=== PATIENT | female | born 1975 | race Two or more races ===

== ENCOUNTER 2018-03-19 17:50 | Emergency (ER) | payer MEDICAID ==
[~2018-03-19] VITALS: Ht 152.4 cm; Wt 61.2 kg
[2018-03-19 17:56] VITALS: BP 141/71
[2018-03-19] MEDS ORDERED: ACETAMINOPHEN/CODEINE#3 (300/30mg) TAB PO ONE (19:45)
[2018-03-19] MEDS ORDERED: TRIAMCINOLONE 40MG/ML 1ML VIAL IM ONE (19:45)
[2018-03-19] MEDS ORDERED: LIDOCAINE W/ EPINEPHRINE 2% INJ 20ML VIAL IJ ONE (19:45)
== END 2018-03-19 20:47 | disposition home or self-care (01) ==
LOC: ER 17:55
DX: G24.3 Spasmodic torticollis (principal)
CPT/HCPCS: 72040; 81025; 96372; 99283; J3301

== ENCOUNTER → 2022-02-11 | Outpatient (CLI) | payer MEDICAID ==
[2022-02-08 14:32] LABS: Basophils # (auto) 0.1 10 ^3/uL (0-0.2); Basophils % (auto) 0.9 % (0.0-2.0); Eosinophils # (auto) 0.1 10 ^3/uL (0-0.8); Hemoglobin 14.7 g/dL (12.2-16.2); Monocytes # (auto) 0.6 10 ^3/uL (0-1.3); Neutrophils # (auto) 6.6 10 ^3/uL (1.6-8.6)
[2022-02-08 14:41] LABS: Eosinophils % (auto) 0.8 % (0.0-7.0); Hematocrit 44.1 % (36.0-46.0); Lymphocytes # (auto) 2.3 10 ^3/uL (0.4-5.4); Lymphocytes % (auto) 23.7 % (10.0-50.0); Mean Corpuscular Hemoglobin 30.3 pg (28.0-32.0); Mean Corpuscular Hgb Conc. 33.3 g/dL (32.0-36.0); Mean Corpuscular Volume 90.9 fL (80.0-100.0); Monocytes % (auto) 6.4 % (0.0-12.0); Neutrophils % (auto) 68.2 % (37.0-80.0); Red Blood Cells 4.86 10^6/uL (4.0-5.20); Red Cell Distribution Width 12.5 % (11.8-14.3); White Blood Cell 9.6 10^3/uL (4.4-10.8)
[2022-02-08 14:51] LABS: Calcium 9.4 mg/dL (8.5-10.1); Potassium 4.1 mmol/L (3.5-5.1)
[2022-02-08 15:16] LABS: BUN/Creatinine Ratio 17.1; Bilirubin, Total 0.3 mg/dL (0.2-1.0); Total Protein 8.7 g/dL (6.4-8.2)
[~2022-02-11] VITALS: Ht 152.4 cm; Wt 65.8 kg
[~2022-02-11] MED LIST: ATOR40TA52 PO; LISI2.5T47 PO; METF-372 PO; ceFAZolin 1GM/50ML 0 ML IV ONE
[2022-02-11 14:33] LABS: Urine WBC None Seen /hpf (0 - 5)
[2022-02-11 15:09] LABS: Urine Bacteria NONE SEEN /hpf (None Seen); Urine Blood Negative /uL (Negative); Urine Mucus FEW (None Seen); Urine Specific Gravity 1.027 (1.001-1.035)
== END | disposition home or self-care (01) ==
LOC: SUR 06:39 → EDSTATUS 11:45
PROVIDERS: ATTEND Urology
DX: N20.0 Calculus of kidney (principal); Z53.8 Procedure and treatment not carried out for other reasons; Z20.822 Contact with and (suspected) exposure to COVID-19
CPT/HCPCS: 36415; 74018; 80053; 81001; 81025; 84702; 85025; 87086; U0003; J0690

== ENCOUNTER 2023-12-10 08:22 | Emergency (ER) | payer MEDICAID ==
[~2023-12-10] VITALS: Ht 154.9 cm; Wt 58.4 kg
[~2023-12-10 08:22] MED LIST changes: -ceFAZolin 1GM/50ML 0 ML IV ONE
[2023-12-10] MEDS: SODIUM CHLORIDE 0.9% 1,000 ML IV ONE (11:26)
[2023-12-10] MEDS: cloNIDine HCL 0.1 MG TAB PO ONE (11:40)
[2023-12-10 11:45] LABS: Basophils # (auto) 0.2 10 ^3/uL (0-0.2); Basophils % (auto) 1.9 % (0.0-2.0); Eosinophils # (auto) 0.2 10 ^3/uL (0-0.8); Eosinophils % (auto) 1.7 % (0.0-7.0); Hematocrit 39.8 % (36.0-46.0); Hemoglobin 13.6 g/dL (12.2-16.2); Lymphocytes # (auto) 4.3 10 ^3/uL (0.4-5.4); Lymphocytes % (auto) 38.6 % (10.0-50.0); Mean Corpuscular Hemoglobin 30.9 pg (28.0-32.0); Mean Corpuscular Hgb Conc. 34.2 g/dL (32.0-36.0); Mean Corpuscular Volume 90.5 fL (80.0-100.0); Monocytes # (auto) 0.7 10 ^3/uL (0-1.3); Monocytes % (auto) 6.4 % (0.0-12.0); Neutrophils # (auto) 5.8 10 ^3/uL (1.6-8.6); Neutrophils % (auto) 51.4 % (37.0-80.0); Nucleated Red Blood Cells % 0.3 %; Platelet Count (auto) 237 10^3/uL (140-450); Red Cell Distribution Width 12.9 % (11.8-14.3); White Blood Cell 11.2 10^3/uL (4.4-10.8)
[2023-12-10 11:46] LABS: Urine Bacteria None Seen /hpf (None Seen)
[2023-12-10 12:00] LABS: Alanine Aminotransferase 19 U/L (7-40); Alkaline Phosphatase 101 U/L (46-116); Anion Gap 6 (5-15); Aspartate Aminotransferase 13 U/L (13-40); BUN/Creatinine Ratio 13.5 (10.0-20.0); Bilirubin, Total 0.4 mg/dL (0.2-1.0); Blood Urea Nitrogen 10 mg/dL (9-23); Calcium 9.7 mg/dL (8.7-10.4); Carbon Dioxide 29 mmol/L (20-30); Chloride 100 mmol/L (98-107); Glucose 229 mg/dL (74-106); Lipase 37 U/L (12-53); Magnesium 2.1 mg/dL (1.6-2.6); Potassium 3.3 mmol/L (3.5-5.1); Sodium 135 mmol/L (136-145)
[2023-12-10 12:01] LABS: Total Protein 8.3 g/dL (5.7-8.2)
[2023-12-10 12:29] LABS: Urine Blood 1+ /uL (Negative); Urine Clarity Clear (Clear); Urine Color Yellow (Yellow); Urine Protein, UAD Negative (Negative); Urine Specific Gravity 1.031 (1.001-1.035); Urine Urobilinogen 8 mg/dL (Negative); Urine WBC 2 /hpf (0 - 5)
[2023-12-10] MEDS: POTASSIUM EFFERVESENT TAB 25 MEQ PO ONE (13:20)
[2023-12-10 13:37] VITALS: BP 100/67; PULSE 61; RESP 17; TEMP 98.7; O2SAT 99
[2023-12-10] MEDS ORDERED: METO-281 PO (14:34)
[2023-12-10] MEDS ORDERED: NAP500T PO (14:34)
== END 2023-12-10 14:45 | disposition home or self-care (01) ==
LOC: ER 08:22
DX: K80.20 Calculus of gallbladder without cholecystitis without obstruction (principal); R10.2 Pelvic and perineal pain; N20.0 Calculus of kidney; E87.6 Hypokalemia; E11.65 Type 2 diabetes mellitus with hyperglycemia; I10 Essential (primary) hypertension; E78.5 Hyperlipidemia, unspecified
CPT/HCPCS: 36415; 74176; 80053; 81001; 83690; 83735; 84702; 85025; 96360; 96361; 99284; J7030